=== PATIENT | female | born 1960 | race American Indian/Alaskan Native ===

== ENCOUNTER 2017-05-13 13:11 | Emergency (ER) | payer OTHER ==
[2017-05-13 13:35] VITALS: BP 119/82; PULSE 77; RESP 18; TEMP 97.6; O2SAT 98
--- NOTE | 2017-05-13 14:16 | C.PDOC ---
History Of Present Illness 57 year old female presents to the ED for evaluation of abrasion to right knee and pain status post fall four days ago. Patient states she slipped and fell on waxed floor and landed on her right knee. She notes swelling has improved since and denies fever, discharge from abrasion, or other complaints at this time. Time Seen by Provider: 05/13/17 14:12 Chief Complaint (Nursing): Lower Extremity Problem/Injury History Per: Patient History/Exam Limitations: no limitations Onset/Duration Of Symptoms: Days (4 days ) - Knee Description Of Injury: Fell (slipped and fell on waxed floor ) Past Medical History Reviewed: Historical Data, Nursing Documentation, Vital Signs Vital Signs: Last Vital Signs Temp 97.6 F 05/13/17 13:32 Pulse 77 05/13/17 13:32 Resp 18 05/13/17 13:32 BP 119/82 05/13/17 13:32 Pulse Ox 98 05/13/17 14:18 - Medical History PMH: Asthma Family History: States: Unknown Family Hx - Social History Hx Alcohol Use: No Hx Substance Use: No - Immunization History Hx Tetanus Toxoid Vaccination: No Hx Influenza Vaccination: No Hx Pneumococcal Vaccination: No Review Of Systems Constitutional: Negative for: Fever, Chills Cardiovascular: Negative for: Chest Pain, Palpitations Respiratory: Negative for: Cough, Shortness of Breath Gastrointestinal: Negative for: Nausea, Vomiting Musculoskeletal: Positive for: Leg Pain (right knee pain and swelling ) Neurological: Negative for: Weakness, Numbness Physical Exam - Physical Exam Appears: Non-toxic, No Acute Distress Skin: Warm, Dry, Other (Healing abrasion to right knee. No discharge, cellulitis , or sign of infection. ) Head: Atraumatic, Normacephalic Eye(s): bilateral: Normal Inspection, PERRL, EOMI Neck: Supple Chest: Symmetrical, No Deformity Cardiovascular: Rhythm Regular, No Murmur Respiratory: Normal Breath Sounds, No Rales, No Rhonchi, No Wheezing Extremity: Normal ROM (full ROM of the right knee ), Tenderness (diffuse tenderness of right knee ), No Calf Tenderness, Capillary Refill (good capillary refill, less than two seconds ), Swelling (mild swelling to anterior right knee ), Other (local ecchymosis of the right knee ) Neurological/Psych: Oriented x3 Gait: Steady ED Course And Treatment O2 Sat by Pulse Oximetry: 98 (room air ) - Other Rad R KNEE X-Ray: Interpreted by Me (NEG) Medical Decision Making Medical Decision Making: Right knee X-ray was ordered and bacitracin was applied. Patient advised to use topical antibiotic and proper wound care. Disposition Counseled Patient/Family Regarding: Studies Performed, Diagnosis, Need For Followup, Rx Given - Disposition Referrals: YOUR,PMD [Other] Disposition: HOME/ ROUTINE Disposition Time: 14:17 Condition: IMPROVED Instructions: Contusion in Adults (ED), Abrasion (ED) Forms: [employer] (Togolese), Work Excuse - Clinical Impression Clinical Impression: Knee contusion, Knee abrasion - Scribe Statement The provider has reviewed the documentation as recorded by the Scribe Barb Chaves All medical record entries made by the Scribe were at my direction and personally dictated by me. I have reviewed the chart and agree that the record accurately reflects my personal performance of the history, physical exam, medical decision making, and the department course for this patient. I have also personally directed, reviewed, and agree with the discharge instructions and disposition.
[2017-05-13] MEDS ORDERED: Bacitracin 500 Units/gm Oint Foilpak UD TOP ONE (14:18)
[2017-05-13] MEDS ORDERED: Bacitracin 500 Units/gm Oint Foilpak UD ONE (14:23)
--- NOTE | 2017-05-13 14:40 | RAD ---
Right knee three views History: Trauma. Comparison: None available. Findings: Mild medial and patellofemoral compartment joint space narrowing. No significant suprapatellar joint effusion. No evidence of acute displaced fracture or dislocation. Impression: Mild degenerative changes. If pain persists, consider MRI.
== END 2017-05-13 14:40 | disposition home or self-care (01) ==
LOC: C.ER 13:11
DX: S80.01XA Contusion of right knee, initial encounter (principal); W01.0XXA Fall on same level from slipping, tripping and stumbling without subsequent striking against object, initial encounter; Y93.89 Activity, other specified; Y92.89 Other specified places as the place of occurrence of the external cause; Y99.8 Other external cause status

== ENCOUNTER 2017-09-21 12:23 | Emergency (ER) | payer OTHER ==
[2017-09-21 13:00] VITALS: BP 113/72; PULSE 71; RESP 18; TEMP 97.7; O2SAT 98
[2017-09-21] MEDS ORDERED: Oxycodone/Acetaminophen 5/325 mg Tab PO STA (13:14)
[2017-09-21] MEDS ORDERED: Oxycodone/Acetaminophen 5/325 mg Tab ONE (13:18)
--- NOTE | 2017-09-21 14:08 | C.PDOC ---
History Of Present Illness 57 year old female presents to the emergency department complaining of left, lower thoracic back pain since yesterday. Reports muscular pain in that area. Patient also reports a dry cough. Denies any fever or extremity weakness. Utilized a heating pad, but found the pain to be worse in the morning. PMD: No Family Provider Time Seen by Provider: 09/21/17 13:05 Chief Complaint (Nursing): Back Pain History Per: Patient History/Exam Limitations: no limitations Onset/Duration Of Symptoms: Days (x2) Past Medical History Reviewed: Historical Data, Nursing Documentation, Vital Signs Vital Signs: Last Vital Signs Temp 97.7 F 09/21/17 12:55 Pulse 71 09/21/17 12:55 Resp 18 09/21/17 12:55 BP 113/72 09/21/17 12:55 Pulse Ox 98 09/21/17 14:58 - Medical History PMH: Asthma Surgical History: No Surg Hx Family History: States: Unknown Family Hx - Social History Hx Tobacco Use: No Hx Alcohol Use: No Hx Substance Use: No - Immunization History Hx Tetanus Toxoid Vaccination: No Hx Influenza Vaccination: No Hx Pneumococcal Vaccination: No Review Of Systems Except As Marked, All Systems Reviewed And Found Negative. Constitutional: Negative for: Fever Respiratory: Positive for: Cough (Dry). Negative for: Shortness of Breath Musculoskeletal: Positive for: Back Pain (Left, lower thoracic, with associated muscular pain) Skin: Negative for: Rash Physical Exam - Physical Exam Appears: Non-toxic, Other (moderate to severe distress) Skin: Normal Color, Dry, No Rash Head: Atraumatic, Normacephalic Respiratory: Normal Breath Sounds, No Accessory Muscle Use, No Rales, No Rhonchi , No Wheezing Back: Other (Localized tenderness in the left, lower thoracic region) Neurological/Psych: Oriented x3 ED Course And Treatment O2 Sat by Pulse Oximetry: 98 (RA) Pulse Ox Interpretation: Normal - Radiology CXR: Interpreted by Nc CXR Interpretation: Yes: No Acute Disease Progress Note: ice pack, percocet, motrin PO Reevaluation Time: 14:50 Reassessment Condition: Improved (dramatically improved local pain) Medical Decision Making Medical Decision Making: Time: 13:14 Initial Plan: --Chest X-Ray --Motrin 600mg PO --Percocet 5/325 mg 1 Tab PO Disposition Time: 14:51 On reassessment, patient is resting comfortably, with improvement of back pain. Patient remains afebrile, with no bony tenderness, extremity numbness or weakness, or abdominal pain. Patient is ambulatory in the emergency department with no signs of discomfort. Patient was advised to follow up with physician/ clinic in 1-2 days. Disposition Doctor Will See Patient In The: Office Counseled Patient/Family Regarding: Studies Performed, Diagnosis - Disposition Referrals: [facility] [Outside] Disposition: HOME/ ROUTINE Disposition Time: 14:51 Condition: GOOD Additional Instructions: ice packs 1/2 hour, nothing hot. Motrin 400-600 mg every 6 hours as needed Tramadol 50 mg (narcotic) 1 tab every 6 hours and/or for sleep as needed. Prescriptions: traMADol [Ultram] 50 mg PO Q6H PRN #20 tab PRN Reason: pain Instructions: Costochondritis (ED) Forms: [employer] (Khmer) - Clinical Impression Clinical Impression: Costochondritis - Scribe Statement The provider has reviewed the documentation as recorded by the Scribe Alethea Esquivel All medical record entries made by the Scribe were at my direction and personally dictated by me. I have reviewed the chart and agree that the record accurately reflects my personal performance of the history, physical exam, medical decision making, and the department course for this patient. I have also personally directed, reviewed, and agree with the discharge instructions and disposition.
--- NOTE | 2017-09-21 16:19 | RAD ---
Chest x-ray two views History: Chest pain. Comparison: None available. Findings: No focal infiltrate or effusion. Small nodular density at the right lung base may represent confluence of shadows of ribs and vessels. Bibasilar breast shadows. Heart size within normal limits. Degenerative changes in the spine and shoulders. Impression: No focal infiltrate or effusion.
== END 2017-09-21 15:17 | disposition home or self-care (01) ==
LOC: C.ER 12:23
DX: M94.0 Chondrocostal junction syndrome [Tietze] (principal)